=== PATIENT | male | born 1975 | race Caucasian/White ===

== ENCOUNTER 2021-05-24 13:11 | Inpatient (IN) | payer BC ==
[~2021-05-24] VITALS: Ht 185.4 cm; Wt 122.5 kg
[~2021-05-24 13:11] MED LIST: ALDACTONE100 MG PO; BUSPAR 10MG10 MG PO; CATAPRES0.2 MG PO; CELEXA40 MG PO; COREG6.25 MG PO; CREON DR 24,001 EACH PO; CRESTOR20 MG PO; FERROUS SULFAT325 M2 PO; FOLIC ACID 1 MG1 MG PO; K-TAB ER20 MEQ PO; LASIX80 MG PO; LEVOTHYROXINE25 MCG PO; MERREM; NORVASC10 MG PO; OMEPRAZOLE40 MG PO; PHENERGAN 25 MG25 M1 PO; THERAGRAN M TAB1 EA PO; TRIGLIDE160 MG PO; VITAMIN B-1100 M1 PO; ZESTRIL40 MG PO; ZOFRAN4 MG PO
[2021-05-24 14:53] LABS: HEMOGLOBIN 14.9 gm/dl (14.0-17.5); RED BLOOD COUNT 4.29 M/UL (4.20-5.50)
[2021-05-24 15:20] LABS: BUN/CREATININE RATIO 8 (0-10)
[2021-05-24] MEDS ORDERED: COMPLEX B-1001 EACH PO (20:51)
[2021-05-24] MEDS ORDERED: VITAMIN D21250 MCG PO (20:51)
[2021-05-24] MEDS ORDERED: POTASSIUM CHLO10 ME1 PO (20:52)
[2021-05-24] MEDS ORDERED: LISINOPRIL20 MG PO (20:52)
[2021-05-24] MEDS ORDERED: PROZAC40 MG PO (20:53)
[2021-05-24 21:32] LABS: RED BLOOD COUNT 3.87 M/UL (4.20-5.50); WHITE BLOOD COUNT 9.7 K/UL (4.5-11.0)
[2021-05-25 05:11] LABS: HEMOGLOBIN 11.7 gm/dl (14.0-17.5)
[2021-05-25 05:15] LABS: RED BLOOD COUNT 3.43 M/UL (4.20-5.50)
[2021-05-27 05:05] LABS: HEMOGLOBIN 11.8 gm/dl (14.0-17.5); RED BLOOD COUNT 3.47 M/UL (4.20-5.50); WHITE BLOOD COUNT 5.5 K/UL (4.5-11.0)
[2021-05-27 05:37] LABS: BUN/CREATININE RATIO 4 (0-10)
[2021-05-28 08:33] LABS: HEMOGLOBIN 11.9 gm/dl (14.0-17.5); RED BLOOD COUNT 3.44 M/UL (4.20-5.50); WHITE BLOOD COUNT 6.7 K/UL (4.5-11.0)
[2021-05-28 09:00] LABS: BUN/CREATININE RATIO 3 (0-10)
[2021-05-29 07:46] LABS: HEMOGLOBIN 11.7 gm/dl (14.0-17.5); RED BLOOD COUNT 3.47 M/UL (4.20-5.50); WHITE BLOOD COUNT 7.3 K/UL (4.5-11.0)
[2021-05-29 08:08] LABS: BUN/CREATININE RATIO 2 (0-10)
[2021-05-30 05:43] LABS: HEMOGLOBIN 10.4 gm/dl (14.0-17.5)
[2021-05-30 05:44] LABS: RED BLOOD COUNT 3.09 M/UL (4.20-5.50); WHITE BLOOD COUNT 4.6 K/UL (4.5-11.0)
[2021-05-30 06:03] LABS: BUN/CREATININE RATIO 4 (0-10)
[2021-05-30 08:13] LABS: HBSAG SCREEN Negative (Negative); HEP A AB, IGM Negative (Negative); HEP B CORE AB, IGM Negative (Negative); HEP C VIRUS AB 0.1 (0.0-0.9)
--- NOTE | 2021-05-30 13:49 | NUR ---
PT TRANSFERRED TO PCU ROOM 6104 AT APPROX. 1200. REPORT ALREADY CALLED. PT STABLE. AT BEDSIDE.
[2021-05-30 14:13] LABS: ALKALINE PHOSPHATASE, S 156 IU/L (44-121); BONE FRACTION: 56 % (12-68); INTESTINAL FRAC.: 2 % (0-18); LIVER FRACTION: 42 % (13-88)
[2021-05-31 08:48] LABS: HEMOGLOBIN 10.4 gm/dl (14.0-17.5); RED BLOOD COUNT 3.03 M/UL (4.20-5.50); WHITE BLOOD COUNT 3.8 K/UL (4.5-11.0)
[2021-05-31 09:12] LABS: BUN/CREATININE RATIO 4 (0-10)
[2021-06-01 04:08] LABS: WHITE BLOOD COUNT 4.2 K/UL (4.5-11.0)
[2021-06-01 04:15] LABS: HEMOGLOBIN 12.4 gm/dl (14.0-17.5); RED BLOOD COUNT 3.64 M/UL (4.20-5.50)
[2021-06-01 04:34] LABS: BUN/CREATININE RATIO 4 (0-10)
[2021-06-02 07:04] LABS: RED BLOOD COUNT 3.28 M/UL (4.20-5.50); WHITE BLOOD COUNT 3.4 K/UL (4.5-11.0)
[2021-06-02 07:43] LABS: BUN/CREATININE RATIO 2 (0-10)
[2021-06-02] MEDS ORDERED: KLOR-CON M2020 MEQ PO (15:09)
[2021-06-02] MEDS ORDERED: MAGNESIUM400 M2 PO (15:15)
[2021-06-02] MEDS ORDERED: PROTONIX 40 MG40 M1 PO (15:15)
[2021-06-02] MEDS ORDERED: PHOS-NAK PACKET1 EA PO (15:15)
[2021-06-02] MEDS ORDERED: LASIX TAB 20 MG20 MG PO (15:55)
[2021-06-02] MEDS ORDERED: FOLIC ACID 1 MG1 MG PO (16:06)
[2021-06-02] MEDS ORDERED: HYDRALAZINE HCL25 MG PO (17:00)
== END 2021-06-02 17:20 | disposition home or self-care (01) | DRG 438 ==
LOC: ER1 13:11 → CDU 18:35 → CCU 18:35 → PROG CARE 05-30 12:03
PROVIDERS: Emergency Medicine; Internal Medicine; Internal Medicine Gastroenterology; ADMIT Internal Medicine
PROC: 3E033XZ Introduction of Vasopressor into Peripheral Vein, Percutaneous Approach (ICD-10-PCS; principal; 2021-05-24)
DX: K85.20 Alcohol induced acute pancreatitis without necrosis or infection (principal); R57.1 Hypovolemic shock; G93.41 Metabolic encephalopathy; N17.9 Acute kidney failure, unspecified; E87.2 Acidosis; F10.139 Alcohol abuse with withdrawal, unspecified; Z20.822 Contact with and (suspected) exposure to COVID-19; D61.818 Other pancytopenia; E87.6 Hypokalemia; E83.42 Hypomagnesemia; E83.39 Other disorders of phosphorus metabolism; K86.0 Alcohol-induced chronic pancreatitis; K70.0 Alcoholic fatty liver; E86.0 Dehydration; K21.9 Gastro-esophageal reflux disease without esophagitis; F41.9 Anxiety disorder, unspecified; F32.A Depression, unspecified; K80.20 Calculus of gallbladder without cholecystitis without obstruction; I10 Essential (primary) hypertension; E78.5 Hyperlipidemia, unspecified; F17.229 Nicotine dependence, chewing tobacco, with unspecified nicotine-induced disorders; Z98.890 Other specified postprocedural states; Z82.49 Family history of ischemic heart disease and other diseases of the circulatory system; Z79.899 Other long term (current) drug therapy
CPT/HCPCS: 36415; 36600; 70450; 71045; 80048; 80053; 80074; 80076; 80307; 81001; 82140; 82150; 82550; 82553; 82803; 83605; 83690; 83735; 83874; 84075; 84080; 84100; 84132; 84295; 84484; 85025; 85027; 85610; 86140; 87040; 93005; 94760; 96374; 96375; 97162; 97166; 97530; 99285; C9113; G0480; J2270; J2405; J2543; J2550; J3360; J3475; J3480; J7030; J7050; U0002